=== PATIENT | male | born 1975 | race Caucasian/White ===

== ENCOUNTER 2023-06-18 07:29 | Day surgery (SDC) | payer OTHER ==
[~2023-06-18] VITALS: Ht 154.9 cm; Wt 80.7 kg
[2023-06-18] MEDS ORDERED: MEPERIDINE 100 MG INJ. 100 MG/ML VIAL ONE (10:47)
[2023-06-18] MEDS ORDERED: MIDAZOLAM HCL 5 MG/5 ML VIAL ONE (10:47)
[2023-06-18 14:40] VITALS: O2SAT 100
[2023-06-18 15:51] VITALS: BP_SYST 106; PULSE 60; RESP 13
== END 2023-06-18 12:15 | disposition home or self-care (01) ==
LOC: SDS 07:29 → SMU 07:30 → SDS 12:15
PROVIDERS: ATTEND Internal Medicine Gastroenterology
DX: Z12.11 Encounter for screening for malignant neoplasm of colon (principal); K64.8 Other hemorrhoids; R10.12 Left upper quadrant pain; Z87.891 Personal history of nicotine dependence
CPT/HCPCS: 45378; 99152; G0378; J2250; J2175